=== PATIENT | male | born 1945 | race Caucasian/White ===

== ENCOUNTER 2023-09-17 06:19 | Emergency (ER) | payer MEDICARE, OTHER, SELFPAY ==
[2023-09-17 06:24] VITALS: BP 129/65; BMI 27.9
--- NOTE | 2023-09-17 06:27 | ED.GENMED ---
History of Present Illness
General
Chief Complaint: Abdominal Pain
Time Seen by Provider: 09/17/23 06:25
History of Present Illness
History of Present Illness:
HPI: The patient presents with right-sided abdominal/back pain. This started last night and was gradual in onset and progression. Recently he was constipated and took Dulcolax and then had loose stool. He never had any blood in the stool. He
never had any vomiting but has some ongoing nausea. He is not sure if this feels similar to prior kidney stone. He states he is commonly bradycardic.
EXAM:
GENERAL: Well appearing in no distress
HEENT: Moist oral mucosa, hearing aids noted
CARDIOVASCULAR: No murmurs, bradycardic heart rate, regular rhythm, No chest wall tenderness
PULMONARY: No respiratory distress, breath sounds are clear and equal
ABDOMEN: Soft with no peritoneal signs, very mild right lower quadrant tenderness, no CVA tenderness
NEUROLOGIC: Excellent strength all extremities, no coordination deficits
PSYCHIATRIC: Appropriate mental status, normal insight and judgement
EXTREMITIES: Nontender, no edema, moves all extremities equally
SKIN: No rash, no lesions
TIME OF INITIAL ENCOUNTER: 6:20 AM
NUMBER AND COMPLEXITY OF PROBLEMS ADDRESSED AT THE ENCOUNTER
� Chronic conditions affecting care: Asthma, MARVIN/CPAP, high blood pressure, hyperlipidemia, celiac disease, BPH
� Acute Exacerbation and/or Progression of Chronic Illness: This is an acute problem
� Differential Diagnosis includes: Ureteral stone/colic, appendicitis, gastroenteritis, colitis
AMOUNT AND/OR COMPLEXITY OF DATA TO BE REVIEWED AND ANALYZED
� I performed an independent evaluation of and my interpretation is:
EKG:
CT: CT imaging is suspicious for distal 4 mm right ureteral stone. I personally viewed the images and do see perinephric stranding on the right side.
X-rays:
Laboratory Studies: White count normal, bicarb slightly low at 20, 11-15 red cells on urinalysis but no clear evidence for infection
Other:
� Review of other/old records: The patient was seen here and admitted with syncope a year and a half ago at that time felt related to be due to volume depletion/NVD.
� Clinical information was obtained by an independent historian: I spoke to EMS at bedside
� Prescriptions/Medications Considered but not given:
� Further testing considered but not performed:
RISK OF COMPLICATIONS AND/OR MORBIDITY OR MORTALITY OF PATIENT MANAGEMENT
� Social determinants of health affecting care: Lives at home
� Discussion with other providers:
� Escalation of care including admission/observation vs risk of discharge considered: The patient came in by ambulance due to rather significant right-sided abdominal/flank pain. On reassessment prior to discharge, the patient
feels significantly improved after Toradol was given. He is already on Flomax.
Past History
Past History
ED Past Medical History: Asthma, HTN (borderline), Hypercholesterolemia and Other (bph, sleep apnea,Celiac's, Migraines)
ED Past Surgical History: Other (myringotomies)
Patient has exhibited threatening behavior?: No
PSI?: No
Social History
Tobacco: Non-smoker
Alcohol: Occasional
Personal:
Living: with family
Employment: Retired
Phy Exam
Physical Exam
Physical Exam:
See HPI
Course
Orders/Labs/Results
Orders:
Orders
09/17/23 06:26
CT Abd/Pel (IV only)-[facility] only Urgent
Comment:
Reason For Exam: RLQ pain/tender; R flank pain; constip then diarr
0.9% Sodium Chloride 1000 ml [Nss] 1,000 ml IV BOLUS
Ketorolac [Toradol] 15 mg IV NOW STA
Ondansetron Injectable [Zofran] 4 mg IV NOW STA
09/17/23 06:33
Basic Metabolic Panel Urgent
Complete Blood Count/With Diff Urgent
Lipase Urgent
09/17/23 09:00
Urinalysis Reflex To Culture Urgent
Date Specimen was Collected: 09/17/23
Time Specimen was Collected: 08:57
Urine Microscopic Reflex Cult Urgent
Urine Culture Urgent
[facility]EN Source: U
Specimen Description:
Date Specimen was Collected: 09/17/23
Time Specimen was Collected: 08:57
Abnormal Lab Results
09/17/23 09/17/23
06:33 09:00
RBC 4.46 L 10^6/uL
(4.70-6.10)
MCH 31.6 H pg
(27.0-31.0)
Absolute Neuts (auto) 8.1 H 10^3/uL
(1.4-6.5)
Absolute Lymphs (auto) 0.9 L 10^3/uL
(1.2-3.4)
Neutrophils % 83.8 H %
(42.2-75.2)
Lymphocytes % 9.0 L %
(20.5-51.1)
Chloride 112 H mmol/L
(98-107)
Carbon Dioxide 20 L mmol/L
(22-30)
Glucose 145 H mg/dl
(70-99)
Urine Ketones 1+ A
(Negative)
Ur Occult Blood Reflex 1+ A
(Negative)
Leukocyte Esterase Rfl 1+ A
(Negative)
Urine RBC 11-15 A /HPF
(0-2)
Urine Bacteria (Reflex) Few A
(Negative)
09/17/23 06:33
09/17/23 06:33
Vital Signs
Initial and Last Documented VS:
Initial Vital Signs
Temp Pulse Resp BP Pulse Ox
98.6 F 55 22 129/65 95
09/17/23 06:24 09/17/23 06:24 09/17/23 06:24 09/17/23 06:24 09/17/23 06:24
Last Documented Vital Signs
Temp Pulse Resp BP Pulse Ox
98.5 F 45 18 121/58 98
09/17/23 11:05 09/17/23 11:05 09/17/23 11:05 09/17/23 11:05 09/17/23 11:05
*Critical Care Note
Total Time (30-74mins, 75-104mins- exclusive of procedures): Not Applicable
ED Attending Note
-
Portions of this chart may have been created with voice recognition software.� Occasional wrong word or��sound alike� substitutions may have occurred due to the inherent limitations of voice recognition software.
Discharge Plan
Departure
Patient Disposition: Home (Routine Discharge)
Date of Disposition: 09/17/23
Time of Disposition: 10:05
Patient with high blood pressure during this ER visit?: Yes
Discharge Problem:
Colic, ureteral
Instructions: Kidney Stones (DC), Kidney Stone, Adult ED, Kidney stone diet
Prescriptions:
New
oxycodone-acetaminophen [Percocet] 5-325 mg tablet
1 - 2 tab PO Q8H PRN (Reason: Pain) Qty: 14 0RF
ondansetron HCl 4 mg tablet
4 mg PO Q8H PRN (Reason: nausea and vomiting) Qty: 14 0RF
No Action
tamsulosin 0.4 MG capsule
0.8 mg PO HS
armodafinil [Nuvigil] 150 MG tablet
150 mg PO DAILY
multivitamin with folic acid [Tab-A-Rosy] 1 TABLET tablet
1 tab PO DAILY
topiramate 25 MG tablet
25 mg PO BID
omeprazole 40 MG capsule,delayed release(DR/EC)
40 mg PO DAILY
citalopram 20 MG tablet
20 mg PO DAILY
gabapentin 300 MG capsule
300 mg PO TIDPRN PRN (Reason: nerve pain)
montelukast 10 MG tablet
10 mg PO HS
finasteride 5 MG tablet
5 mg PO DAILY
simvastatin 20 mg Tablet
20 mg PO HS
Referrals:
Seng Sanford DO [Family Provider] -
Isak Schneider MD [Active] - Follow up in 2-3 days
Activity Restrictions/Additional Instructions:
Basic blood work including kidney function is normal. He did have blood in your urine which is expected with kidney stones however there is no sign of infection. CAT scan shows a 4 mm stone in the right ureter that is closer to the bladder.
Follow-up with Dr. Schneider. I recommend 3-4 htoa-[id number]-gabhwmr ibuprofen (Motrin) every 8 hours with food for a few days. Return here if worse. I also sent a prescription for Percocet and Zofran to your pharmacy. Continue Flomax.
Interventions
Interventions:
*Risk Screen - Suicide Last Done: 09/17/23 06:47
*General Assessment Last Done: 09/17/23 06:24
*Neglect/Abuse Screening Last Done: 09/17/23 06:24
ED- Fall Risk Assessment Last Done: 09/17/23 06:45
*ED COVID-19 Vaccine History Last Done: 09/17/23 06:47
*Nursing Disposition Last Done: 09/17/23 11:05
[facility] Assessment Last Done: 09/17/23 06:45
Discharge Date and Time
Discharge Date/Time: 09/17/23 11:08
Print Language: [id number]
[2023-09-17] MEDS: NSS 1000 IV (06:39)
[2023-09-17] MEDS: ZOFRAN 4 MG IV (06:40)
[2023-09-17] MEDS: TORADOL 15 MG IV (06:40)
[2023-09-17 06:48] LABS: % Basophils 0.3 % (0-2); % Eosinophils 0.2 % (0-6); % Immature Granulocytes 0.3 % (0-0.5); % Monocytes 6.4 % (1.7-9.3); % Neutrophils 83.8 % (42.2-75.2); Absolute Lymphocytes 0.9 10^3/uL (1.2-3.4); Absolute Monocytes 0.6 10^3/uL (0.1-0.6); Absolute Neutrophils 8.1 10^3/uL (1.4-6.5); Hematocrit 41.7 % (39.0-52.0); Hemoglobin 14.1 g/dL (13.0-18.0); Mean Corp Hgb Conc. 33.8 g/dL (33.0-37.0); Mean Corpuscular Hgb 31.6 pg (27.0-31.0); Mean Corpuscular Volume 93.5 fL (80.0-94.0); Mean Platelet Volume 9.2 fL (7.4-10.4); Nucleated Red Blood Cells % 0 % (-); Platelet Count 182 10^3/uL (130-400); Red Blood Cell Count 4.46 10^6/uL (4.70-6.10); Red Cell Dist. Width 12.3 % (11.5-14.5); White Blood Cell Count 9.7 10^3/uL (4.8-10.8)
[2023-09-17 07:00] VITALS: BP 116/64
[2023-09-17 07:51] LABS: Blood Urea Nitrogen 16 mg/dl (9-20); Calcium 9.1 mg/dl (8.4-10.2); Carbon Dioxide 20 mmol/L (22-30); Chloride 112 mmol/L (98-107); Estimated Creatinine Clearance 63 ml/min; Glucose 145 mg/dl (70-99); Lipase 44 U/L (23-300); Sodium 136 mmol/L (135-145); eGFR > 60.00
[2023-09-17 09:11] LABS: Urine Albumin Negative (Neg - Trace); Urine Bilirubin Negative (Negative); Urine Character Clear (Clear); Urine Color Yellow; Urine Glucose Negative (Negative); Urine Ketone 1+ (Negative); Urine Leukocyte 1+ (Negative); Urine Nitrite Negative (Negative); Urine Occult Blood 1+ (Negative); Urine Urobilinogen Negative (Neg - 1+)
[2023-09-17 09:46] LABS: Urine Bacteria Few (Negative)
[2023-09-17 11:05] VITALS: BP 121/58
== END 2023-09-17 11:08 | disposition home or self-care (01) ==
LOC: EMR 06:19
PROVIDERS: EMERGENCY PHYSICIAN Emergency Medicine; FAMILY PHYSICIAN Family Medicine
DX: N23 Unspecified renal colic (principal); R11.0 Nausea; R10.9 Unspecified abdominal pain; M54.9 Dorsalgia, unspecified; I10 Essential (primary) hypertension; E78.00 Pure hypercholesterolemia, unspecified; G47.30 Sleep apnea, unspecified; K90.0 Celiac disease; G43.909 Migraine, unspecified, not intractable, without status migrainosus; J45.909 Unspecified asthma, uncomplicated; Z88.1 Allergy status to other antibiotic agents; Z88.8 Allergy status to other drugs, medicaments and biological substances
CPT/HCPCS: 99285; 96375; 96374; 74177; 80048; 81003; 81015; 83690; 85025; 87086; Q9967